=== PATIENT | male | born 1945 | race Caucasian/White ===

== ENCOUNTER 2017-01-25 10:22 | Emergency (ER) | payer MEDICARE, OTHER ==
[2017-01-25] MEDS ORDERED: Lidocaine 1% 20 ML MDV INJECT ONE (11:22)
[2017-01-25] MEDS ORDERED: methylPREDNISolone Acetate 40 MG/ML SDV IARTIC ONE (11:23)
--- NOTE | 2017-01-25 11:30 | EDM.PDOC ---
[id number] Complaint: LT LEG/KNEE PAIN Time Seen by Provider: 01/25/17 11:24 Source of Information: Reports: Patient History Limitations: Reports: No Limitations - History of Present Illness INITIAL COMMENTS - FREE TEXT/NARRATIVE: [place] uneven ground, He felt like his knee gave way and he developed alot of swelling in the knee. It is very uncomfortable. She also feels like it is unstable. Onset: Gradual Duration: Day(s):, Getting Worse Location: Reports: Lower Extremity, Left Associated Symptoms: Reports: No Other Symptoms - Related Data Allergies Allergy/AdvReac Type Severity Reaction Status Date / Time clindamycin Allergy Cannot Verified 07/28/15 08:03 Remember Penicillins Allergy Cannot Verified 07/28/15 08:03 Remember Home Meds: Home Meds Atenolol [Tenormin] 25 mg PO DAILY 07/26/15 [History] Omeprazole [Prilosec] 20 mg PO DAILY 07/26/15 [History] Aspirin 2 tab PO BID 01/25/17 [History] Past Medical History HEENT History: Reports: Cataract Cardiovascular History: Reports: Bypass, High Cholesterol, Hypertension Musculoskeletal History: Reports: Osteoarthritis Social & Family History - Tobacco Use Smoking Status *Q: Current Every Day Smoker Years of Tobacco use: 60 Packs/Tins Daily: 0.5 Second Hand Smoke Exposure: No - Recreational Drug Use Recreational Drug Use: No Review of Systems - Review of Systems Review Of Systems: See Below Constitutional: Reports: No Symptoms Eyes: Reports: No Symptoms Ears: Reports: No Symptoms Nose: Reports: No Symptoms Mouth/Throat: Reports: No Symptoms Respiratory: Reports: No Symptoms Cardiovascular: Reports: No Symptoms GI/Abdominal: Reports: No Symptoms Musculoskeletal: Reports: Other ( Pain and swelling in the left knee. ) ED EXAM, GENERAL - Physical Exam Exam: See Below Free Text/Narrative:: Pt arrived with pain and swelling in the left knee. He feels like the knee is tight and it also feels quite unstable. Exam Limited By: No Limitations General Appearance: Alert, Anxious Ears: Normal External Exam Ear Exam: Right Ear: Swelling Nose: Normal Inspection Throat/Mouth: Normal Inspection Head: Atraumatic Neck: Normal Inspection Respiratory/Chest: No Respiratory Distress Cardiovascular: Regular Rate, Rhythm GI/Abdominal: Soft, Non-Tender Extremities: Other (left knee is swollen and very tight. It is tender on both sides of the knee. It does not look red and does not feel hot. ) Course - Vital Signs Last Recorded V/S: Last Vital Signs Temp 36.4 C 01/25/17 10:50 Pulse 69 01/25/17 13:15 Resp 16 01/25/17 13:15 BP 163/79 H 01/25/17 13:15 Pulse Ox 96 01/25/17 13:15 - Orders/Labs/Meds Labs: Laboratory Tests 01/25/17 01/25/17 Range/Units 11:30 12:01 WBC 12.7 H (4.5-11.0) K/uL RBC 3.88 L (4.30-5.90) M/uL Hgb 10.9 L (12.0-15.0) g/dL Hct 34.3 L (40.0-54.0) % MCV 88 (80-98) fL MCH 28 (27-31) pg MCHC 32 (32-36) % Plt Count 270 (150-400) K/uL Neut % (Auto) 61 (36-66) % Lymph % (Auto) 28 (24-44) % Williams % (Auto) 9 H (2-6) % Eos % (Auto) 1 L (2-4) % Baso % (Auto) 0 (0-1) % Fluid Type Synovial fluid Fluid WBC 2790 /ul Fluid RBC 630 /ul Fluid Diff Comment Fluid Mononuclear Cell 12 % Fl Polymorphonucl Cell 88 % Meds: Medications Discontinued Medications Generic Name Dose Route Start Last Admin Trade Name Rohitq PRN Reason Stop Dose Admin Ceftriaxone Sodium 1 gm/ 0 gm 01/25/17 13:03 01/25/17 13:22 Lidocaine HCl 2.1 ml IM 01/25/17 13:04 1 inj ONETIME ONE Administration Ketorolac Tromethamine 60 mg 01/25/17 13:01 01/25/17 13:22 Toradol IM 01/25/17 13:02 60 mg ONETIME ONE Administration Lidocaine HCl 20 ml 01/25/17 11:22 01/25/17 11:39 Xylocaine 1% INJECT 01/25/17 11:23 20 ml ONETIME ONE Administration Methylprednisolone Acetate 40 mg 01/25/17 11:23 01/25/17 11:39 Depo-Medrol IARTIC 01/25/17 11:24 40 mg ONETIME ONE Administration - Re-Assessments/Exams Free Text/Narrative Re-Assessment/Exam: 01/25/17 13:10 Mri is neg for major structural changes, gram stain was positive for gram positive cocci. He had alot of wbcs. A culture has been obtained. rocephen 1 gm was given im, He was given given torodol 60mg im. 01/25/17 13:16 knee was tapped under sterile conditions, 35 cc of yellow fluid was removed, Departure - Departure Time of Disposition: 13:12 Disposition: Home, Self-Care 01 Condition: Fair Clinical Impression: Septic joint of left knee joint, Joint effusion - Discharge Information Instructions: Bone and Joint Infections, Adult, Knee Effusion, [id number] Referrals: Tr Brito MD [Primary Care Provider] - Forms: ED Department Discharge Care Plan Goals: cool pack to the knee, vikash wrap on and off, minimal activity, ortho appt Sat or saturday. motrin 600mg tid with food. keflex 500mg tid.
--- NOTE | 2017-01-25 11:52 | CR ---
Knee 3V Lt HISTORY: Pain COMPARISON: None FINDINGS: Normal joint space preservation. No effusion or fracture. No bony destructive process.
[2017-01-25] MEDS ORDERED: Ketorolac 60 MG/2 ML SDV IM ONE (13:01)
[2017-01-25] MEDS ORDERED: cefTRIAXone 1 GM, Lidocaine 1% 2.1 ML IM ONE ×2 (13:03)
[2017-01-25 13:16] VITALS: BP 163/79
--- NOTE | 2017-01-25 13:21 | MR ---
Knee wo Cont Lt HISTORY: Knee pain, no traumatic injury. COMPARISON: Plain films 01/25/2017. FINDINGS: Medial compartment: The medial meniscus appears normal. Mild chondromalacia. Lateral compartment: The lateral meniscus and articular cartilage appear normal. Ligaments and tendons: The anterior and posterior cruciate ligaments are intact the medial and later al collateral ligaments appear normal. Patellar femoral joint: Very mild chondromalacia. Retinaculum appear normal. Moderate joint effusion . Patient recently had joint aspiration. There is a small amount of air in the nondependent aspect o f the suprapatellar bursa. Bone marrow soft tissue. There is no fracture or contusion. Diffuse subcutaneous edema in the anteri or medial and lateral aspects of the knee. Impression: 1. 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 2. Moderate joint effusion patient had recent joint aspiration in the emergency room. 3. Ligaments and tendons appear intact.
== END 2017-01-25 13:57 | disposition home or self-care (01) ==
LOC: JP.ED 10:22
DX: M00.9 Pyogenic arthritis, unspecified (principal); M25.462 Effusion, left knee; F17.210 Nicotine dependence, cigarettes, uncomplicated; M19.90 Unspecified osteoarthritis, unspecified site; E78.00 Pure hypercholesterolemia, unspecified; I10 Essential (primary) hypertension; Z79.899 Other long term (current) drug therapy; Z88.0 Allergy status to penicillin; Z88.1 Allergy status to other antibiotic agents
CPT/HCPCS: 20610; 36415; 73562; 73721; 85025; 87070; 87205; 89050; 96372; 99284; J0696; J1030; J1885; 99283-25

== ENCOUNTER 2017-07-04 07:19 | Emergency (ER) | payer MEDICARE, OTHER ==
[2017-07-04] MEDS ORDERED: Aspirin 81 MG Tab.Chew ONE (07:25)
[2017-07-04] MEDS ORDERED: Aspirin 81 MG Tab.Chew PO ONE (07:30)
--- NOTE | 2017-07-04 07:45 | EDM.PDOC ---
ED HPI GENERAL MEDICAL PROBLEM - General Chief Complaint: Chest Pain Stated Complaint: CHEST PAIN Time Seen by Provider: 07/04/17 07:20 Source of Information: Reports: Patient History Limitations: Reports: No Limitations - History of Present Illness INITIAL COMMENTS - FREE TEXT/NARRATIVE: 72-year-old male arrives this morning after developing chest pain radiating to both shoulders and his right jaw at 3:30 in the morning. The pain was fairly significant for 1 to 1-1/2 hours and now has resolved but he came in to get checked. He had a CABG in 2004, has been developing stable angina for the past several months and last night was his first pain at rest. He takes an aspirin daily but did not take his aspirin today, he was given 324 mg of chewable aspirin. He denies any current chest pain. No nausea or vomiting. Over the past month he is actually been avoiding activities such as shoveling snow because it causes chest pain. No peripheral edema. Onset: Gradual (Gradual escalation of chest pain, last night's chest pain was rather sudden onset and woke him up) Location: Reports: Chest Quality: Reports: Ache, Pressure Severity: Moderate Associated Symptoms: Reports: Shortness of Breath (Slight shortness of breath) Chest Pain Score (Numeric/FACES): 1 - Related Data Allergies Allergy/AdvReac Type Severity Reaction Status Date / Time clindamycin Allergy Cannot Verified 07/04/17 07:42 Remember Penicillins Allergy Cannot Verified 07/04/17 07:42 Remember Home Meds: Home Meds Atenolol [Tenormin] 25 mg PO DAILY 07/26/15 [History] Omeprazole [Prilosec] 20 mg PO DAILY 07/26/15 [History] Aspirin 2 tab PO BID 01/25/17 [History] Ibuprofen [Motrin] 600 mg PO TID PRN 01/31/17 [History] Past Medical History HEENT History: Reports: Cataract Cardiovascular History: Reports: Bypass, High Cholesterol, Hypertension Musculoskeletal History: Reports: Osteoarthritis, Other (See Below) Other Musculoskeletal History: L knee pain Social & Family History - Tobacco Use Smoking Status *Q: Current Every Day Smoker Years of Tobacco use: 60 Packs/Tins Daily: 0.5 Second Hand Smoke Exposure: No - Recreational Drug Use Recreational Drug Use: No ED ROS GENERAL - Review of Systems Review Of Systems: See Below Constitutional: Denies: Fever, Chills, Malaise HEENT: Reports: No Symptoms Respiratory: Reports: Shortness of Breath Cardiovascular: Reports: Chest Pain. Denies: Palpitations GI/Abdominal: Denies: Abdominal Pain, Nausea, Vomiting Skin: Reports: Diaphoresis (Slight intermittent diaphoresis with pain) Neurological: Reports: No Symptoms ED EXAM, GENERAL - Physical Exam Exam: See Below Exam Limited By: No Limitations General Appearance: Alert, No Apparent Distress Eye Exam: Bilateral Eye: Normal Inspection Respiratory/Chest: No Respiratory Distress, Lungs Clear Cardiovascular: Regular Rate, Rhythm GI/Abdominal: Soft, Non-Tender Extremities: Normal Inspection. No: Pedal Edema Neurological: Alert, Oriented Psychiatric: Normal Affect, Normal Mood Skin Exam: Warm, Dry EKG INTERPRETATION Rhythm: NSR QRS: Normal ST-T: Elevated (Anterolateral leads) Comparison: NA - No Prior EKG Course - Vital Signs Last Recorded V/S: Last Vital Signs Temp 95.6 F 07/04/17 07:19 Pulse 71 07/04/17 08:12 Resp 14 07/04/17 08:12 BP 177/69 H 07/04/17 08:12 Pulse Ox 99 07/04/17 08:12 - Orders/Labs/Meds Orders: Active Orders 24 hr Category Date Time Status EKG Documentation Completion [RC] ASDIRECTED Care 07/04/17 07:31 Active EKG 12 Lead [EK] Routine Ther 07/04/17 07:30 Ordered Labs: Laboratory Tests 07/04/17 07/04/17 07/04/17 Range/Units 07:30 07:30 07:32 WBC 11.0 (4.5-11.0) K/uL RBC 5.05 (4.30-5.90) M/uL Hgb 13.6 D (12.0-15.0) g/dL Hct 41.4 (40.0-54.0) % MCV 82 (80-98) fL MCH 27 (27-31) pg MCHC 33 (32-36) % Plt Count 230 (150-400) K/uL Neut % (Auto) 58 (36-66) % Lymph % (Auto) 34 (24-44) % Mellette % (Auto) 7 H (2-6) % Eos % (Auto) 2 (2-4) % Baso % (Auto) 0 (0-1) % PT 10.7 (9.5-12.0) sec INR 1.00 (0.80-1.20) Sodium 139 L (140-148) mmol/L Potassium 4.1 (3.6-5.2) mmol/L Chloride 103 (100-108) mmol/L Carbon Dioxide 27 (21-32) mmol/L Anion Gap 13.1 (5.0-14.0) mmol/L BUN 13 (7-18) mg/dL Creatinine 1.1 (0.8-1.3) mg/dL Est Cr Clr Drug Dosing 63.60 mL/min Estimated GFR (MDRD) > 60 (>60) Glucose 186 H (74-106) mg/dL Calcium 8.9 (8.5-10.1) mg/dL Total Bilirubin 0.3 (0.2-1.0) mg/dL AST 25 (15-37) U/L ALT 27 (12-78) U/L Alkaline Phosphatase 79 (46-116) U/L Troponin I (0.000-0.056) ng/mL Total Protein 7.2 (6.4-8.2) g/dL Albumin 3.3 L (3.4-5.0) g/dL Globulin 3.9 H (2.3-3.5) g/dL Albumin/Globulin Ratio 0.9 L (1.2-2.2) 07/04/ Range/Units 07:32 WBC (4.5-11.0) K/uL RBC (4.30-5.90) M/uL Hgb (12.0-15.0) g/dL Hct (40.0-54.0) % MCV (80-98) fL MCH (27-31) pg MCHC (32-36) % Plt Count (150-400) K/uL Neut % (Auto) (36-66) % Lymph % (Auto) (24-44) % Mellette % (Auto) (2-6) % Eos % (Auto) (2-4) % Baso % (Auto) (0-1) % PT (9.5-12.0) sec INR (0.80-1.20) Sodium (140-148) mmol/L Potassium (3.6-5.2) mmol/L Chloride (100-108) mmol/L Carbon Dioxide (21-32) mmol/L Anion Gap (5.0-14.0) mmol/L BUN (7-18) mg/dL Creatinine (0.8-1.3) mg/dL Est Cr Clr Drug Dosing mL/min Estimated GFR (MDRD) (>60) Glucose (74-106) mg/dL Calcium (8.5-10.1) mg/dL Total Bilirubin (0.2-1.0) mg/dL AST (15-37) U/L ALT (12-78) U/L Alkaline Phosphatase (46-116) U/L Troponin I 0.633 H* (0.000-0.056) ng/mL Total Protein (6.4-8.2) g/dL Albumin (3.4-5.0) g/dL Globulin (2.3-3.5) g/dL Albumin/Globulin Ratio (1.2-2.2) Meds: Medications Discontinued Medications Generic Name Dose Route Start Last Admin Trade Name Freq PRN Reason Stop Dose Admin Aspirin Confirm 07/04/17 07:25 Aspirin Administered 07/04/17 07:26 Dose 324 mg .ROUTE .STK-MED ONE Aspirin 324 mg 07/04/17 07:30 07/04/17 07:25 Aspirin PO 07/04/17 07:31 324 mg ONETIME ONE Administration Clopidogrel Bisulfate 600 mg 07/04/17 07:55 07/04/17 07:59 Plavix PO 07/04/17 07:56 600 mg ONETIME ONE Administration Clopidogrel Bisulfate Confirm 07/04/17 07:57 Plavix Administered 07/04/17 07:58 Dose 600 mg .ROUTE .STK-MED ONE Heparin Sodium (Porcine) 4,000 units 07/04/17 08:01 07/04/17 08:05 Heparin Sodium IVPUSH 07/04/17 08:02 4,000 units ONETIME ONE Administration Heparin Sodium (Porcine) Confirm 07/04/17 08:04 Heparin Sodium Administered 07/04/17 08:05 Dose 5,000 units .ROUTE .STK-MED ONE Heparin Sodium/Dextrose 25,000 units in 500 mls @ 0 mls/hr 07/04/17 08:15 08:16 Heparin 25,000 Units In D5w 500 Ml IV 5.12 units/kg/hr TITRATE HUYEN 10 mls/hr Protocol Administration 800 UNITS/KG/HR Heparin Sodium/Dextrose Confirm 07/04/17 08:05 Heparin 25,000 Units In D5w 500 Ml Administered 07/04/17 08:06 Dose 500 mls @ as directed .ROUTE .[facility] ONE - Re-Assessments/Exams Free Text/Narrative Re-Assessment/Exam: 07/04/17 07:54 An urgent EKG was done which appeared to show an anterolateral ST elevation IA. There were reciprocal changes 07/04/17 08:04 EKG was faxed to [facility] and I discussed the patient's condition with Dr. Phillips, power lineman suppression crew leader. Patient was given 600 mg of by mouth Plavix , was heparinized and Dr. Phillips accepted the patient for urgent angiography. 07/04/17 08:15 Troponin returned at 0.6. Patient was informed that he did have an IA overnight and he needs urgent transport to an employee relations advisor. He was given 1000 international units of heparin bolus, and will be given 800 units per hour in route to [place]. Departure - Departure Time of Disposition: 08:25 Disposition: DC/Tfer to Other Reason for Transfer *Q: Primary PCI Indicated Condition: Fair Clinical Impression: ST elevation (STEMI) myocardial infarction Qualifiers: Involved coronary artery: unspecified coronary artery Qualified Code(s): I21.3 - ST elevation (STEMI) myocardial infarction of unspecified site Referrals: PCP,None [Primary Care Provider] - Forms: ED Department Discharge Care Plan Goals: Patient will be urgently transferred to [place] for cardiology evaluation and intervention for a STEMI. - My Orders Last 24 Hours: My Active Orders 07/04/17 07:30 EKG 12 Lead [EK] Routine 07/04/17 07:31 EKG Documentation Completion [RC] ASDIRECTED - Assessment/Plan Last 24 Hours: My Active Orders 07/04/17 07:30 EKG 12 Lead [EK] Routine 07/04/17 07:31 EKG Documentation Completion [RC] ASDIRECTED
[2017-07-04] MEDS ORDERED: Clopidogrel 75 MG Tab PO ONE (07:55)
[2017-07-04] MEDS ORDERED: Clopidogrel 75 MG Tab ONE (07:57)
[2017-07-04] MEDS ORDERED: Heparin Sodium 5,000 Units/ML Vial IVPUSH ONE (08:01)
[2017-07-04] MEDS ORDERED: Heparin Sodium 5,000 Units/ML Vial ONE (08:04)
[2017-07-04] MEDS ORDERED: Heparin Sodium/D5W 500 ML ONE (08:05)
[2017-07-04] MEDS ORDERED: Heparin Sodium/D5W 25,000 UNITS/500 ML BAG IV SCH (08:15)
[2017-07-04 08:30] VITALS: BP 177/69
== END 2017-07-04 08:25 | disposition other institution (70) ==
LOC: JP.ED 07:19
DX: I21.3 ST elevation (STEMI) myocardial infarction of unspecified site (principal); I10 Essential (primary) hypertension; I25.10 Atherosclerotic heart disease of native coronary artery without angina pectoris; E78.00 Pure hypercholesterolemia, unspecified; F17.210 Nicotine dependence, cigarettes, uncomplicated; Z95.1 Presence of aortocoronary bypass graft; Z79.82 Long term (current) use of aspirin; Z79.899 Other long term (current) drug therapy; Z88.0 Allergy status to penicillin; Z88.1 Allergy status to other antibiotic agents
CPT/HCPCS: 36415; 80053; 84484; 85025; 85610; 93005; 96374; 99285; A9270; J1644; 93010

== ENCOUNTER 2020-04-03 09:11 | Emergency (ER) | payer MEDICARE, OTHER ==
[2020-04-03 10:15] VITALS: BP 160/64; PULSE 66
[2020-04-03] MEDS ORDERED: Triamcinolone Acetonide 40 MG/ML 1 ML MDV INJECT ONE (10:39)
[2020-04-03] MEDS ORDERED: Bupivacaine 0.5% 10 ML SDV INJECT ONE (10:39)
--- NOTE | 2020-04-03 11:35 | EDM.PDOC ---
ED HPI GENERAL MEDICAL PROBLEM - General Chief Complaint: Lower Extremity Injury/Pain Stated Complaint: LEFT KNEE CANT LEFT WONT BEND Time Seen by Provider: 04/03/20 10:20 Source of Information: Reports: Patient, Family History Limitations: Reports: No Limitations - History of Present Illness INITIAL COMMENTS - FREE TEXT/NARRATIVE: 74-year-old male with recurring left knee swelling over the past 20 years, for the past week it has been swelling again. Over the past 24 hours is gotten much worse, he is unable to bend the knee. No fevers or chills, no other joint issues, is always in the left. He has always come to the emergency room to have it drained and claims he has never had orthopedic follow-up although it appears he may have had an appointment with [facility] several years ago. Onset: Gradual Duration: Day(s): (6 to 7 days) Location: Reports: Lower Extremity, Left Associated Symptoms: Reports: No Other Symptoms Left Knee Pain Score (Numeric/FACES): 5 - Related Data Allergies Allergy/AdvReac Type Severity Reaction Status Date / Time clindamycin Allergy Cannot Verified 04/03/20 10:08 Remember Penicillins Allergy Cannot Verified 04/03/20 10:08 Remember Home Meds: Home Meds Omeprazole [Prilosec] 20 mg PO DAILY 07/26/15 [History] Aspirin 162 mg PO DAILY 01/25/17 [History] Ibuprofen [Motrin] 600 mg PO TID PRN 01/31/17 [History] Clopidogrel Bisulfate [Clopidogrel] 75 mg PO DAILY 11/18/19 [History] Nitroglycerin 0.4 mg SL ASDIRECTED PRN 11/18/19 [History] Rosuvastatin Calcium 5 mg PO DAILY 11/18/19 [History] Spironolactone [Aldactone] 25 mg PO DAILY 11/18/19 [History] amLODIPine Besylate [Amlodipine Besylate] 5 mg PO DAILY 11/18/19 [History] carvediloL [Carvedilol] 12.5 mg PO DAILY 11/18/19 [History] Ferrous Sulfate [Ferosul] 325 mg PO DAILY 12/02/19 [History] lisinopriL [Lisinopril] 2.5 mg PO DAILY 12/02/19 [History] Past Medical History HEENT History: Reports: Cataract Cardiovascular History: Reports: Bypass, High Cholesterol, Hypertension Musculoskeletal History: Reports: Osteoarthritis, Other (See Below) Other Musculoskeletal History: L knee pain - Infectious Disease History Infectious Disease History: Reports: Chicken Pox, Measles, Mumps - Past Surgical History GI Surgical History: Reports: Colonoscopy Social & Family History - Tobacco Use Smoking Status *Q: Former Smoker Used Tobacco, but Quit: Yes Month/Year Tobacco Last Used: 2 years - Caffeine Use Caffeine Use: Reports: Coffee - Recreational Drug Use Recreational Drug Use: No Review of Systems - Review of Systems Review Of Systems: See Below Constitutional: Denies: Fever Respiratory: Reports: No Symptoms Cardiovascular: Reports: No Symptoms Skin: Denies: Bruising, Erythema Neurological: Denies: Paresthesia ED EXAM, GENERAL - Physical Exam Exam: See Below Exam Limited By: No Limitations General Appearance: Alert, No Apparent Distress (Fairly comfortable with lying still) Respiratory/Chest: No Respiratory Distress Cardiovascular: Regular Rate, Rhythm Extremities: Other (Knees are compared, there is swelling around the left knee compared to the right. He is very tender to palpation along the tibial plateau especially medially. There is no erythema or warmth of the joint. No distal edema of the lower extremities) Neurological: Alert, Oriented Psychiatric: Normal Affect, Normal Mood Course - Vital Signs Last Recorded V/S: Last Vital Signs Temp 97.8 F 04/03/20 10:14 Pulse 66 04/03/20 10:14 Resp 14 04/03/20 10:14 BP 160/64 H 04/03/20 10:14 Pulse Ox 98 04/03/20 10:14 - Orders/Labs/Meds Orders: Active Orders 24 hr Category Date Time Status Consult to Orthopedic Clinic [CONS] Routine Cons 04/03/20 11:24 Active Consult to Orthopedic Clinic [CONS] Routine Cons 04/03/20 11:25 Active Meds: Medications Discontinued Medications Generic Name Dose Route Start Last Admin Trade Name Freq PRN Reason Stop Dose Admin Bupivacaine HCl 10 ml 04/03/20 10:39 04/03/20 10:56 Sensorcaine-Mpf 0.5% INJECT 04/03/20 10:40 10 ml ONETIME ONE Administration Triamcinolone Acetonide 40 mg 04/03/20 10:39 04/03/20 10:56 Kenalog-40 INJECT 04/03/20 10:40 40 mg ONETIME ONE Administration - Re-Assessments/Exams Free Text/Narrative Re-Assessment/Exam: 04/03/20 12:01 The knee was sterilely prepped with Betadine, and a small amount of 0.5% Marcaine was used to infiltrate the skin for anesthesia. An 18-gauge needle was used to remove 30 cc of padmini fluid from the knee. 10 mg of Kenalog and 5 cc of 0.5% Marcaine was then injected into the knee, a Band-Aid was applied and it was Jack wrap. Patient will recheck with Dr. Meneses later this week. Departure - Departure Time of Disposition: 11:36 Disposition: Home, Self-Care 01 Clinical Impression: Effusion of left knee - Discharge Information Instructions: Knee Effusion, [id number] Referrals: PCP,None [Primary Care Provider] - Forms: ED Department Discharge Care Plan Goals: Keep knee wrapped, use crutches if helpful and call Dr. Meneses's office tomorrow for an appointment either Saturday or to recheck the knee and get further evaluation. Sepsis Event Note (ED) - Evaluation Sepsis Screening Result: No Definite Risk - Focused Exam Vital Signs: Vital Signs Temp Pulse Resp BP Pulse Ox 04/03/20 10:14 97.8 F 66 14 160/64 H 98 - My Orders Last 24 Hours: My Active Orders 04/03/20 11:24 Consult to Orthopedic Clinic [CONS] Routine 04/03/20 11:25 Consult to Orthopedic Clinic [CONS] Routine - Assessment/Plan Last 24 Hours: My Active Orders 04/03/20 11:24 Consult to Orthopedic Clinic [CONS] Routine 04/03/20 11:25 Consult to Orthopedic Clinic [CONS] Routine
== END 2020-04-03 11:40 | disposition home or self-care (01) ==
LOC: JP.ED 09:11
DX: M25.462 Effusion, left knee (principal); E78.00 Pure hypercholesterolemia, unspecified; I10 Essential (primary) hypertension; Z88.0 Allergy status to penicillin; Z88.1 Allergy status to other antibiotic agents; Z79.899 Other long term (current) drug therapy; Z79.82 Long term (current) use of aspirin; Z79.02 Long term (current) use of antithrombotics/antiplatelets; Z87.891 Personal history of nicotine dependence
CPT/HCPCS: 20610; 99283; J3301; J3490

== ENCOUNTER 2021-05-03 09:00 | Emergency (ER) | payer MEDICARE, OTHER ==
[2021-05-03 09:16] VITALS: BP 159/57; PULSE 64
--- NOTE | 2021-05-03 09:49 | EDM.PDOC ---
ED HPI GENERAL MEDICAL PROBLEM - General Chief Complaint: Lower Extremity Injury/Pain Stated Complaint: LT KNEE ISSUES Time Seen by Provider: 05/03/21 09:35 Source of Information: Reports: Patient, Family, Old Records, RN Notes Reviewed History Limitations: Reports: No Limitations - History of Present Illness INITIAL COMMENTS - FREE TEXT/NARRATIVE: 75-year-old gentleman presents emergency department today complaint of painful left knee, he has had troubles with this knee for some time actually follows the orthopedic clinic he did undergo drainage of fluid and injection of steroid 1 year ago. He states he did well with that injection. He has not contacted his primary care did not contact the orthopedics department just presented to the emergency department for evaluation. He states the pain has been increasing over the last month or so and is noticed some swelling around his knee and he would like to go through the procedure he had done in the orthopedic clinic a year ago. Left Knee Pain Score (Numeric/FACES): 9 - Related Data Allergies Allergy/AdvReac Type Severity Reaction Status Date / Time clindamycin Allergy Cannot Verified 05/03/21 09:16 Remember Penicillins Allergy Cannot Verified 05/03/21 09:16 Remember Home Meds: Home Meds Omeprazole [Prilosec] 20 mg PO DAILY 07/26/15 [History] Aspirin 162 mg PO DAILY 01/25/17 [History] Clopidogrel Bisulfate [Clopidogrel] 75 mg PO DAILY 11/18/19 [History] Nitroglycerin 0.4 mg SL ASDIRECTED PRN 11/18/19 [History] Rosuvastatin Calcium 5 mg PO DAILY 11/18/19 [History] Spironolactone [Aldactone] 25 mg PO DAILY 11/18/19 [History] amLODIPine Besylate [Amlodipine Besylate] 5 mg PO DAILY 11/18/19 [History] carvediloL [Carvedilol] 12.5 mg PO DAILY 11/18/19 [History] Ferrous Sulfate [Ferosul] 325 mg PO DAILY 12/02/19 [History] lisinopriL [Lisinopril] 2.5 mg PO DAILY 12/02/19 [History] Past Medical History HEENT History: Reports: Cataract Cardiovascular History: Reports: Bypass, CAD, High Cholesterol, Hypertension, Stents Musculoskeletal History: Reports: Osteoarthritis, Other (See Below) Other Musculoskeletal History: L knee pain - Infectious Disease History Infectious Disease History: Reports: Chicken Pox, Measles, Mumps - Past Surgical History Head Surgeries/Procedures: Reports: None HEENT Surgical History: Reports: Cataract Surgery Cardiovascular Surgical History: Reports: Coronary Artery Bypass, Percutaneous Transluminal Angioplasty Other Cardiovascular Surgeries/Procedures: triple 2004 GI Surgical History: Reports: Colonoscopy Musculoskeletal Surgical History: Reports: None Social & Family History - Tobacco Use Tobacco Use Status *Q: Current Every Day Tobacco User Years of Tobacco use: 60 Packs/Tins Daily: 0.3 - Caffeine Use Caffeine Use: Reports: Coffee - Recreational Drug Use Recreational Drug Use: No Review of Systems - Review of Systems Review Of Systems: See Below Musculoskeletal: Reports: Joint Pain ED EXAM, GENERAL - Physical Exam Exam: See Below Free Text/Narrative:: Examination of the left knee I do appreciate some difference in size between the right and left I can palpate some fluid with a fluid shift to the inferior aspect of the patella it is not particularly tender to the touch it is not warm to the touch there is no erythema noted. Exam Limited By: No Limitations General Appearance: Alert, WD/WN, No Apparent Distress Course - Vital Signs Last Recorded V/S: Last Vital Signs Temp 97.8 F 05/03/21 09:13 Pulse 64 05/03/21 09:13 Resp 18 05/03/21 09:13 BP 159/57 H 05/03/21 09:13 Pulse Ox 99 05/03/21 09:13 Departure - Departure Time of Disposition: 09:47 Disposition: Home, Self-Care 01 Condition: Fair Clinical Impression: Left knee pain Qualifiers: Chronicity: chronic Qualified Code(s): M25.562 - Pain in left knee; G89.29 - Other chronic pain - Discharge Information Instructions: Acute Knee Pain, Adult Referrals: Tr Brito MD [Primary Care Provider] - Additional Instructions: You have an appointment time with orthopedics clinic at 145 on May 11 please follow-up for further evaluation and treatment. Call or return to the emergency department worsening of symptoms Sepsis Event Note (ED) - Evaluation Sepsis Screening Result: No Definite Risk - Focused Exam Vital Signs: Vital Signs Temp Pulse Resp BP Pulse Ox 05/03/21 09:13 97.8 F 64 18 159/57 H 99 - Assessment/Plan Plan: Assessment Acuity = chronic Site and laterality = left knee pain Etiology = probable underlying synovitis Manifestations = none Location of injury = Home Lab values = none Plan Discussed case with the orthopedic clinic they were able to accommodate him next week he has an appointment May 11 at 1:45 in the afternoon This note was dictated using [employer] voice recognition software please call with any questions on syntax or grammar.
== END 2021-05-03 10:08 | disposition home or self-care (01) ==
LOC: JP.ED 09:00
DX: G89.29 Other chronic pain (principal); M25.562 Pain in left knee; I25.10 Atherosclerotic heart disease of native coronary artery without angina pectoris; E78.00 Pure hypercholesterolemia, unspecified; I10 Essential (primary) hypertension; M19.90 Unspecified osteoarthritis, unspecified site; Z79.899 Other long term (current) drug therapy; Z88.0 Allergy status to penicillin; Z88.1 Allergy status to other antibiotic agents; Z95.1 Presence of aortocoronary bypass graft; Z79.82 Long term (current) use of aspirin; Z79.02 Long term (current) use of antithrombotics/antiplatelets; Z72.0 Tobacco use
CPT/HCPCS: 99283